=== PATIENT | male | born 1990 | race African-American/Black ===

== ENCOUNTER 2017-01-24 12:14 | Emergency (ER) | payer SELFPAY ==
[2017-01-24 12:28] VITALS: BP 120/72
[2017-01-24] MEDS ORDERED: IBUPROFEN 800 MG TABLET PO ONE (12:29)
--- NOTE | 2017-01-24 12:31 | ER Document Report ---
ED Medical Screen (RME) - General Stated Complaint: COUGH Mode of Arrival: Ambulatory Information source: Patient Notes: Patient presents to the emergency department with cough and fever for a week. Also reports body aches for a week. Reports diarrhea denies vomiting. Ports a scratchy throat denies sore throat. TRAVEL OUTSIDE OF THE [place] IN LAST 30 DAYS: No - Related Data Allergies/Adverse Reactions: No Known Allergies Allergy (Verified 01/24/17 12:26) Past Medical History Renal/ Medical History: Reports: Hx Epididymitis Musculoskeltal Medical History: Reports Hx Arthritis, Reports Hx Musculoskeletal Deformity - Immunizations Immunizations up to date: No Hx Diphtheria, Pertussis, Tetanus Vaccination: Yes - unknown last Physical Exam - Vital signs Vitals: Temp Pulse Resp BP Pulse Ox 102.6 F H 115 H 16 120/72 98 01/24/17 12:27 01/24/17 12:27 01/24/17 12:27 01/24/17 12:27 01/24/17 12:27 Course - Vital Signs Vital signs: Temp Pulse Resp BP Pulse Ox 102.6 F H 115 H 16 120/72 98 01/24/17 12:27 01/24/17 12:27 01/24/17 12:27 01/24/17 12:27 01/24/17 12:27
--- NOTE | 2017-01-24 15:45 | ER Document Report ---
HPI - HPI Pain Level: 3 Context: Patient is a 26-year-old male who presents to the emergency DEPARTMENT COMPLAINING OF ONE WEEK OF NASAL DRAINAGE, dry, nonproductive COUGH, BODY ACHES. PATIENT DID NOT RECEIVE A FLU VACCINE THIS YEAR. PATIENT STATES HE WORKS AT [employer] WHERE HE COULD POSSIBLY HAVE HAD A FLU EXPOSURE. Has been tolerating by mouth without any difficulty. Denies any nausea, vomiting, diarrhea constipation, , wheezing, shortness of breath, productive cough. Denies any abdominal pain. Has been taking Robitussin at home for the cough. Denies any past medical or past surgical history. Care physician - CARDIOVASCULAR Cardiovascular: DENIES: Chest pain - REPRODUCTIVE Reproductive: DENIES: : - DERM Skin Color: Normal Past Medical History - General Information source: Patient - Social History Smoking Status: Current Every Day Smoker Chew tobacco use (# tins/day): Yes Family History: Arthritis, DM, Hypertension Patient has suicidal ideation: No Patient has homicidal ideation: No Renal/ Medical History: Reports: Hx Epididymitis. Denies: Hx Peritoneal Dialysis Musculoskeltal Medical History: Reports Hx Arthritis, Reports Hx Musculoskeletal Deformity Surgical Hx: Negative - Immunizations Immunizations up to date: No Hx Diphtheria, Pertussis, Tetanus Vaccination: No - unknown last Vertical Provider Document - CONSTITUTIONAL Agree With Documented VS: No - rassesment of vitals david a temp of 98.7 and HR of 89 Exam Limitations: No Limitations General Appearance: WD/WN, No Apparent Distress - INFECTION CONTROL TRAVEL OUTSIDE OF THE [place] IN LAST 30 DAYS: No - HEENT HEENT: Atraumatic, Normal ENT Exam, Normocephalic, PERRLA - NECK Neck: Normal Inspection. negative: Lymphadenopathy-Left, Lymphadenopathy-Right - RESPIRATORY Respiratory: Breath Sounds Normal, No Respiratory Distress, Chest Non-Tender. negative: Rales, Rhonchi, Wheezing O2 Sat by Pulse Oximetry: 98 - CARDIOVASCULAR Cardiovascular: Regular Rate, Regular Rhythm, No Murmur Pulses: Normal: Radial - GI/ABDOMEN Gastrointestinal: Abdomen Soft, Abdomen Non-Tender, No Organomegaly, Normal Bowel Sounds - MUSCULOSKELETAL/EXTREMETIES Musculoskeletal/Extremeties: MAEW, FROM, Non-Tender, No Edema. negative: Eccymosis - NEURO Level of Consciousness: Awake, Alert, Appropriate Motor/Sensory: No Motor Deficit, No Sensory Deficit - DERM Integumentary: Warm, Dry, No Rash Course - Re-evaluation Re-evalutation: 01/24/17 15:44 Patient is a 26 old male who presents with flu symptoms for one week. Patient is hemodynamically stable, no acute distress and afebrile. His vital signs have returned to normal limits after Motrin was received in [facility]. At this time patient is outside of the window for Tamiflu. Patient has been educated on medications to take [id number] to treat symptomatically for influenza. Can follow-up with private PCP as needed. - Vital Signs Vital signs: Temp Pulse Resp BP Pulse Ox 102.6 F H 115 H 16 120/72 98 01/24/17 12:27 01/24/17 12:27 01/24/17 12:27 01/24/17 12:01/24/17 12:27 - Diagnostic Test Radiology reviewed: Image reviewed, Reports reviewed Discharge - Discharge Clinical Impression: Flu-like symptoms Condition: Good Disposition: HOME, SELF-CARE Additional Instructions: INFLUENZA: The physician feels that you have influenza -- the "flu". Influenza is an infection caused by a virus. Symptoms include generalized aching, fever, headache, dry cough, and fatigue. Some patients with the flu also have nausea, vomiting, and diarrhea. The fever and aches usually last two to four days, with the cough persisting another one to two weeks. Treatment of the flu, for the most part, is simply treatment of symptoms. Rest, drink plenty of fluids, and use acetaminophen for fever and aches. Do not take aspirin. There is an anti-viral medication, called Tamiflu, which may help in "type A" flu, but it's not helpful in every case of flu, and only works if started within the first 24 - 48 hours of the start of symptoms. The physician will determine whether this medication can help you. To prevent spread of the virus, use good handwashing. Shared toys should be cleaned with disinfectant. Clean the toilets, sinks, and counter surfaces in bathrooms. Launder clothing in hot water. What are conditions that should receive medical attention? The development of difficulty breathing. Lip color changes to blue or purple. Persistent vomiting and unable to keep liquids down with signs of dehydration such as: dizziness when standing, unable to urinate, or if child/ is crying no tears are noticed. Is less responsive than normal or becomes confused. How do I decrease the spread of flu in my home? Taking care of the sick patient at home: Keep the sick person in a room separate from the common areas of the house. Keep the "sickroom" door closed. If the person with the flu needs to leave the home, they should cover their nose/mouth when coughing or sneezing and wear a disposable (surgical) mask if available. These masks may be available at your local pharmacy, medical supply and hardware store. If the sick person is in common areas of the house, have them wear a surgical mask. If possible, have the sick person use a separate bathroom that should be cleaned daily with a household disinfectant. If you are the caregiver: Avoid being face to face with the sick adult person as much as possible. Try to stay at least 6 feet away and wear a disposable surgical mask when possible. When holding small children who are sick, place their chin on your shoulder so that they will not cough in your face. Wash your hands after you touch the sick person or handle their tissues and laundry. Wear a mask if you leave home, as you may be infected from taking care of someone and not know it yet. Watch yourself and others in the home for flu symptoms and contact your doctor if symptoms occur. NOTE: Antiviral medication used to reduce the symptoms of the flu works only if taken within 48 hours, and best within 24 hours of symptom onset. Household Cleaning, laundry and waste disposal: Tissues and other disposable items used by the sick person should be thrown away in the trash. Wash your hands after touching these used items. No special waste disposal is required. Keep surfaces (especially bedside tables, bathroom surfaces, and toys for children) clean by wiping them down with a safe household disinfectant according to the directions on the product label. Per Center for Disease Control advice, most people will not receive testing to confirm flu. Also based on the person's health history and onset of symptoms, not all patients will receive prescriptions for antiviral medications. If you have questions related to this, please ask your healthcare provider. For more information, you can call the Centers for Disease Control and Prevention (CDC) Hotline at 5-150-TCP-[employer] This line is available in [place] and [place], 24 hours a day, 7 days a week. Or wwwRelaborate or www.cdc.gov Flu-Like Illness Home Instructions: The influenza virus infection can cause a wide rage of symptoms, including: Fever, cough, sore throat, body aches, headaches, chills, fatigue, with some patients reporting diarrhea and vomiting Like seasonal influenza A, H1N1 ("swine flu")in humans can vary in severity from mild to severe Severe illness with pneumonia, respiratory failure and even is possible Certain groups might be more likely to develop a severe illness from H1N1 infection. Sometimes bacterial infections may occur at the same time as or after infection with influenza viruses and lead to pneumonias, ear infections, or sinus infections. How Flu Spreads The main way that influenza viruses spread is through respiratory droplets of coughs and sneezes. This can happen when someone with the infection coughs or sneezes and the particles fly through the air and land on other people and surfaces. If the person covers their mouth and nose with their hand but does not wash their hands immediately, then these germs are passed onto the next object that they touch. People with Influenza A or suspected H1N1 (swine flu) who are cared for at home should: Check with their doctor about any special care that they might need if they are or have a health condition such as diabetes, heart disease, asthma or emphysema. Also, limit caregiver to one (if possible). women or those with chronic health conditions should not take care of the flu patient unless necessary. Check with their doctor about whether or not medications are needed that may lessen the symptoms of the flu. Stay at home until 24 hours fever free without the use of fever reducing medication. Get plenty of rest and avoid other healthy people in your home. Drink plenty of clear liquids to keep from getting dehydrated. Take medications like Tylenol (Acetaminophen), Advil/Motrin/Nuprin ( Ibuprofen) or Aleve (Naproxen) for fevers and aches. All children under the age of 18 years of age should not take aspirin or products containing aspirin (e.g. Pepto Bismol), as this can cause a rare serious illness called Chris Syndrome. Over the counter medications for flu and colds may help, but it is very important to follow the package directions. Remember that the medicine may help the symptoms, but it will not help prevent others from getting sick if they are around you. Cover coughs and sneezes using your bent arm. Clean hands with soap and water or an alcohol-based hand rub often, especially after using tissues to cough or sneeze. Encourage hand washing frequently for all people living in the home! The sick person should not have visitors other than caregivers. Encourage concerned loved ones to call instead of visit. Avoid close contact with others-do not go to work or school while sick. USE OF ACETAMINOPHEN (Tylenol): Acetaminophen may be taken for pain relief or fever control. It's much safer than aspirin, offering a wider range of "safe" dosages. It is safe during . Some brand names are Tylenol, Panadol, Datril, Anacin 3, Tempra, and Liquiprin. Acetaminophen can be repeated every four hours. The following are maximum recommended dosages: WEIGHT Dose Drops Elixir Chewable( 80mg) (LBS.) drprs=droppers tsp=teaspoon 6 40 mg 0.4 ml (1/2) 6-11 80 mg 0.8 ml (full) tsp 1 tab 12-16 120 mg 1 1/2 drprs 3/4 tsp 1 1/2 tabs 17-23 160 mg 2 drprs 1 tsp 2 tabs 24-30 240 mg 3 drprs 1 1/2 tsp 3 tabs 30-35 320 mg 2 tsp 4 tabs 36-41 360 mg 2 1/4 tsp 4 1/2 tabs 42-47 400 mg 2 1/2 tsp 5 tabs 48-53 480 mg 3 tsp 6 tabs 54-59 520 mg 3 1/4 tsp 6 1/2 tabs 60-64 560 mg 3 1/2 tsp 7 tabs 65-70 600 mg 3 3/4 tsp 7 1/2 tabs 71-76 640 mg 4 tsp 8 tabs 77-82 720 mg 4 1/2 tsp 9 tabs 83-88 800 mg 5 tsp 10 tabs >89 pounds or adults 650 mg to 900 mg Acetaminophen can be repeated every four hours. Maximum dose not to exceed 4000 mg a day. These maximum recommended dosages are slightly higher than the dosages written on the product container, but these dosages are very safe and below the toxic dosage for acetaminophen. ORAL NARCOTIC MEDICATION: You have been given a prescription for pain control. This medication is a narcotic. It's best taken with food, as nausea can result if taken on an empty stomach. Don't operate machinery or drive within six hours of taking this medication. Do not combine this medicine with alcohol, or with any medication which can cause sedation (such as cold tablets or sleeping pills) unless you get permission from the physician. Narcotics tend to cause constipation. If possible, drink plenty of fluids and eat a diet high in fiber and fruits. Please be aware that prescription narcotics also have the potential for abuse. People become addicted to these medications because of the general sense of wellbeing that they induce. This feeling along with a significant reduction in tension, anxiety, and aggression provides a stimulating seductive quality to these drugs. Once your pain is under control, we encourage you to discard your unused narcotics. FOLLOW-UP CARE: If you have been referred to a physician for follow-up care, call the physician s office for an appointment as you were instructed or within the next two days. If you experience worsening or a significant change in your symptoms, notify the physician immediately or return to the Emergency Department at any time for re-evaluation. Forms: Return to Work Referrals: DAVID FISHER MD [ACTIVE STAFF] - Follow up as needed
== END 2017-01-24 15:49 | disposition home or self-care (01) ==
LOC: ER 12:14
DX: R05 Cough (principal); M79.1 Myalgia; J34.89 Other specified disorders of nose and nasal sinuses; F17.200 Nicotine dependence, unspecified, uncomplicated; F17.220 Nicotine dependence, chewing tobacco, uncomplicated
CPT/HCPCS: 71020; 99283

== ENCOUNTER 2017-10-07 11:36 | Emergency (ER) | payer SELFPAY ==
--- NOTE | 2017-10-07 12:25 | ER Document Report ---
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 No specific injury. No cervical spine pain or injury. Associated Symptoms: None Exacerbated by: Movement Relieved by: Denies Similar symptoms previously: Yes Recently seen / treated by doctor: No - ROS ROS below otherwise negative: Yes Systems Reviewed and Negative: Yes All other systems reviewed and negative - REPRODUCTIVE Reproductive: DENIES: : Past Medical History - General Information source: Patient - Social History Smoking Status: Current Every Day Smoker Frequency of alcohol use: None Drug Abuse: None Lives with: Family Family History: Arthritis, DM, Hypertension Renal/ Medical History: Reports: Hx Epididymitis. Denies: Hx Peritoneal Dialysis Musculoskeltal Medical History: Reports Hx Arthritis, Reports Hx Musculoskeletal Deformity Surgical Hx: Negative - Immunizations Immunizations up to date: No Hx Diphtheria, Pertussis, Tetanus Vaccination: Yes - unknown last Vertical Provider Document - CONSTITUTIONAL Agree With Documented VS: Yes Exam Limitations: No Limitations General Appearance: No Apparent Distress - INFECTION CONTROL TRAVEL OUTSIDE OF THE [place] IN LAST 30 DAYS: No - HEENT HEENT: Normocephalic - NECK Neck: Supple - non tender - RESPIRATORY Respiratory: Breath Sounds Normal, No Respiratory Distress O2 Sat by Pulse Oximetry: 97 - CARDIOVASCULAR Cardiovascular: Regular Rate, Regular Rhythm - BACK Back: Normal Inspection Notes: shoulderr rolled forward, internal rotation - MUSCULOSKELETAL/EXTREMETIES Musculoskeletal/Extremeties: MAEW, FROM, Tender - right trapezius muscle, periscapular muscles - NEURO Level of Consciousness: Awake, Alert Motor/Sensory: No Motor Deficit, No Sensory Deficit Notes: 5+ strength - DERM Integumentary: Warm, Dry Course - Vital Signs Vital signs: Temp Pulse Resp BP Pulse Ox 99.2 F 87 18 129/76 H 97 10/07/17 11:48 10/07/17 11:48 10/07/17 11:48 10/07/17 11:48 10/07/17 11:48 Discharge - Discharge Clinical Impression: Strain of right trapezius muscle Qualifiers: Encounter type: initial encounter Qualified Code(s): S46.811A - Strain of other muscles, fascia and tendons at shoulder and upper arm level, right arm, initial encounter Radiculopathy Qualifiers: Spinal region: cervical Qualified Code(s): M54.12 - Radiculopathy, cervical region Condition: Good Disposition: HOME, SELF-CARE Instructions: Acetaminophen, Chiropractor, Muscle Strain ([facility]), Numbness or Paresthesia ([facility]), Warm Packs ([facility]) Additional Instructions: warm compress stretches that we practiced tylenol and motrin for pain and inflammation see the chiropractor see family practice doctor, list given to you Please complete the patient satisfaction survey if you get one, and return it.. If you do not receive a survey, then you can go to the [facility] website, [email or web address] and place your comments about your very good care. Thank you very much. It was a pleasure being your medical provider today. Prescriptions: Ibuprofen [Motrin 800 mg Tablet] 800 mg PO Q8HP PRN #30 tablet PRN Reason: Referrals: JENNIFER GRIFFITH DC [CHIROPRACTOR] - Follow up as needed
[2017-10-07] MEDS ORDERED: ACETAMINOPHEN 325 MG TABLET PO ONE (12:48)
[2017-10-07] MEDS ORDERED: IBUPROFEN 800 MG TABLET PO ONE (12:48)
[2017-10-07 13:15] VITALS: BP 125/80
== END 2017-10-07 13:15 | disposition home or self-care (01) ==
LOC: ER 11:36
DX: S46.811A Strain of other muscles, fascia and tendons at shoulder and upper arm level, right arm, initial encounter (principal); X58.XXXA Exposure to other specified factors, initial encounter; G89.29 Other chronic pain; F17.200 Nicotine dependence, unspecified, uncomplicated
CPT/HCPCS: 99283

== ENCOUNTER 2018-02-07 16:28 | Emergency (ER) | payer SELFPAY ==
[2018-02-07 17:14] VITALS: BP 122/74
[2018-02-07] MEDS ORDERED: CEFTRIAXONE INJ 250 MG VIAL IM ONE (18:14)
[2018-02-07] MEDS ORDERED: LIDOCAINE 1% INJ-PF (10 MG/ML) 30 ML SDV INJ ONE (18:14)
[2018-02-07] MEDS ORDERED: AZITHROMYCIN 250 MG TABLET PO ONE (18:14)
--- NOTE | 2018-02-07 18:16 | ER Document Report ---
HPI - HPI Patient complains to provider of: Possible STD Onset/Duration: Persistent Quality of pain: Burning Pain Level: 2 Context: Patient presents complaining of dysuria and penile discharge for the past 3 days. Patient had recent unprotected intercourse and is concerned about an STD. Associated Symptoms: Other - Penile drainage. denies: Fever Exacerbated by: Denies Relieved by: Denies Similar symptoms previously: Yes Recently seen / treated by doctor: No - ROS ROS below otherwise negative: Yes Systems Reviewed and Negative: Yes All other systems reviewed and negative - CONSTITUTIONAL Constitutional: DENIES: Fever - GASTROINTESTINAL Gastrointestinal: DENIES: Abdominal Pain - URINARY Urinary: REPORTS: Dysuria - REPRODUCTIVE Reproductive: DENIES: : - DERM Skin Color: Normal Skin Problems: None Past Medical History - General Information source: Patient - Social History Smoking Status: Current Every Day Smoker Frequency of alcohol use: None Drug Abuse: Marijuana Occupation: Construction Family History: Arthritis, DM, Hypertension Renal/ Medical History: Reports: Hx Epididymitis. Denies: Hx Peritoneal Dialysis Musculoskeltal Medical History: Reports Hx Arthritis, Reports Hx Musculoskeletal Deformity Surgical Hx: Negative - Immunizations Immunizations up to date: No Hx Diphtheria, Pertussis, Tetanus Vaccination: Yes - unknown last Vertical Provider Document - CONSTITUTIONAL Agree With Documented VS: Yes Exam Limitations: No Limitations General Appearance: WD/WN, No Apparent Distress - INFECTION CONTROL TRAVEL OUTSIDE OF THE [place] IN LAST 30 DAYS: No - HEENT HEENT: Atraumatic, Normocephalic - NECK Neck: Normal Inspection, Supple - RESPIRATORY Respiratory: Breath Sounds Normal, No Respiratory Distress - CARDIOVASCULAR Cardiovascular: Regular Rate, Regular Rhythm - REPRODUCTIVE Male Genitalia: Abnormal Inspection - Right inguinal lymphadenopathy Notes: Normal cremasteric reflex, no drainage or discharge, no skin rash, no testicular tenderness - BACK Back: Normal Inspection. negative: CVA Tenderness-Right, CVA Tenderness-Left - MUSCULOSKELETAL/EXTREMETIES Musculoskeletal/Extremeties: MAEW - NEURO Level of Consciousness: Awake, Alert, Appropriate Motor/Sensory: No Motor Deficit - DERM Integumentary: Warm, Dry, No Rash Course - Re-evaluation Re-evalutation: 02/07/18 20:10 Patient was still waiting here in the emergency department for his partner. Partner did test positive for trichomonas, patient will be treated for Trichomonas as well even though his urinalysis did not test positive for this. Patient also advised of positive gonorrhea test results at this time. - Vital Signs Vital signs: Temp Pulse Resp BP Pulse Ox 98.0 F 64 20 122/74 99 02/07/18 17:13 02/07/18 17:13 02/07/18 17:13 02/07/18 17:13 02/07/18 17:13 - Laboratory Laboratory results interpreted by me: 02/07/18 18:37 Labs- Entire Visit 02/07/18 18:00 Urine Color YELLOW Urine Appearance SLIGHTLY-CLOUDY Urine pH 5.0 Ur Specific [place] 1.029 Urine Protein NEGATIVE Urine Glucose (UA) NEGATIVE Urine Ketones NEGATIVE Urine Blood NEGATIVE Urine Nitrite NEGATIVE Urine Bilirubin NEGATIVE Urine Urobilinogen 2.0 H Ur Leukocyte Esterase SMALL H Urine WBC (Auto) 12 Urine RBC (Auto) 4 Urine Bacteria (Auto) TRACE Squamous Epi Cells Auto <1 Calcium Oxalate Cr Auto RARE Urine Mucus (Auto) MOD Urine Ascorbic Acid NEGATIVE Discharge - Discharge Clinical Impression: Penile discharge, Trichomoniasis, Gonorrhea Condition: Stable Disposition: HOME, SELF-CARE Instructions: Azithromycin ([facility]), Gonorrhea ([facility]), Metronidazole ([facility]), Rocephin ([facility]) Additional Instructions: Return immediately for any new or worsening symptoms Followup with your primary care provider, call tomorrow to make a followup appointment Follow-up with health department for HIV testing Safe sex practices Forms: Smoking Cessation Education [facility]NO [facility]AL [facility] - Follow up tomorrow
[2018-02-07 18:32] LABS: APPEARANCE,URINE SLIGHTLY-CLOUDY; BILIRUBIN,URINE NEGATIVE (NEGATIVE); CALCIUM OXALATE CRYSTALS,URINE RARE /HPF; COLOR,URINE YELLOW; GLUCOSE, URINE NEGATIVE (NEGATIVE); KETONES,URINE NEGATIVE (NEGATIVE); LEUKOCYTE ESTERASE,URINE SMALL (NEGATIVE); NITRITE,URINE NEGATIVE (NEGATIVE); PROTEIN,URINE NEGATIVE (NEGATIVE); URINE SPECIFIC GRAVITY 1.029
[2018-02-07 19:47] LABS: CHLAM PCR NOT DETECTED (NOT DETECT); GON PCR DETECTED (NOT DETECT)
[2018-02-07] MEDS ORDERED: METRONIDAZOLE 500 MG TABLET PO ONE (20:09)
== END 2018-02-07 19:28 | disposition home or self-care (01) ==
LOC: ER 16:28
DX: A59.00 Urogenital trichomoniasis, unspecified (principal); A54.09 Other gonococcal infection of lower genitourinary tract; R36.9 Urethral discharge, unspecified; R30.0 Dysuria; F17.200 Nicotine dependence, unspecified, uncomplicated
CPT/HCPCS: 99283; 96372; 36415; 87086; 86592; 81001; 87491; 87591; J3490; J0696

== ENCOUNTER 2018-02-12 08:39 | Emergency (ER) | payer OTHER ==
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
[2018-02-12] MEDS ORDERED: KETOROLAC TROMETHAMINE INJ/PF 30 MG/1 ML SDV IM ONE (09:35)
[2018-02-12] MEDS ORDERED: DEXAMETHASONE SOD PHOS INJ 10 MG/1 ML VIAL IM ONE (09:35)
[2018-02-12 10:43] VITALS: BP 144/74
== END 2018-02-12 10:42 | disposition home or self-care (01) ==
LOC: ER 08:39
DX: S16.1XXA Strain of muscle, fascia and tendon at neck level, initial encounter (principal); S63.502A Unspecified sprain of left wrist, initial encounter; M54.5 Low back pain; M54.2 Cervicalgia; M25.531 Pain in right wrist; M25.532 Pain in left wrist; F17.200 Nicotine dependence, unspecified, uncomplicated; V87.7XXA Person injured in collision between other specified motor vehicles (traffic), initial encounter
CPT/HCPCS: 99283; 96372; J1885; J1100

== ENCOUNTER 2018-08-05 15:16 | Emergency (ER) | payer SELFPAY ==
[2018-08-05 15:22] VITALS: BP 131/72
[2018-08-05] MEDS ORDERED: CEFTRIAXONE INJ 250 MG VIAL IM ONE (15:54)
[2018-08-05] MEDS ORDERED: LIDOCAINE 1% INJ-PF (10 MG/ML) 30 ML SDV INJ ONE (15:54)
[2018-08-05] MEDS ORDERED: AZITHROMYCIN 250 MG TABLET PO ONE (15:54)
--- NOTE | 2018-08-05 16:06 | ER Document Report ---
HPI - HPI Pain Level: Denies Notes: Patient is a 28-year-old male who presents with chief complaint of request for STD check. Patient reports his girlfriend was recently treated for STDs, he is unsure of which ones. Patient is having dysuria and mild discomfort with urination. Denies any fevers. - REPRODUCTIVE Reproductive: DENIES: : Past Medical History - General Information source: Patient - Social History Smoking Status: Current Some Day Smoker Frequency of alcohol use: None Drug Abuse: None Family History: Arthritis, DM, Hypertension Renal/ Medical History: Reports: Hx Epididymitis. Denies: Hx Peritoneal Dialysis Musculoskeletal Medical History: Reports Hx Arthritis, Reports Hx Musculoskeletal Deformity Surgical Hx: Negative - Immunizations Immunizations up to date: No Hx Diphtheria, Pertussis, Tetanus Vaccination: Yes - unknown last Vertical Provider Document - CONSTITUTIONAL Notes: PHYSICAL EXAMINATION: GENERAL: Well-appearing, well-nourished and in no acute distress. HEAD: Atraumatic, normocephalic. EYES: Pupils equal round extraocular movements intact, conjunctiva are normal. ENT: Nares patent NECK: Normal range of motion LUNGS: No respiratory distress Musculoskeletal: Normal range of motion NEUROLOGICAL: Normal speech, normal gait. PSYCH: Normal mood, normal affect. SKIN: Warm, Dry, normal turgor, no rashes or lesions noted. - INFECTION CONTROL TRAVEL OUTSIDE OF THE [place] IN LAST 30 DAYS: No Course - Re-evaluation Re-evalutation: 08/05/18 16:15 Urinalysis is negative for any infection. Patient given IM Rocephin and p.o. azithromycin for possible exposure to chlamydia and gonorrhea. - Vital Signs Vital signs: Temp Pulse Resp BP Pulse Ox 99.2 F 83 16 131/72 H 99 08/05/18 15:21 08/05/18 15:21 08/05/18 15:21 08/05/18 15:21 08/05/18 15:21 Discharge - Discharge Clinical Impression: STD check, STD exposure, Penile discharge Condition: Stable Disposition: HOME, SELF-CARE Additional Instructions: Your urinalysis was negative for any signs of infection. The chlamydia and gonorrhea testing is still pending. I will call you if the results are positive. You have already been treated with both Rocephin and ceftriaxone which will treat both of the possible STDs that we are looking for. Please refrain from sexual activity for 7 days, make sure your partner also gets treatment. You may both follow-up with the health department for repeat STD testing to ensure that the testing is negative at that time.
[2018-08-05 16:09] LABS: APPEARANCE,URINE SLIGHTLY-CLOUDY; BILIRUBIN,URINE NEGATIVE (NEGATIVE); COLOR,URINE YELLOW; GLUCOSE, URINE NEGATIVE (NEGATIVE); KETONES,URINE NEGATIVE (NEGATIVE); LEUKOCYTE ESTERASE,URINE NEGATIVE (NEGATIVE); NITRITE,URINE NEGATIVE (NEGATIVE); PROTEIN,URINE NEGATIVE (NEGATIVE); URINE SPECIFIC GRAVITY 1.021
[2018-08-05 17:29] LABS: CHLAM PCR NOT DETECTED (NOT DETECT); GON PCR NOT DETECTED (NOT DETECT)
== END 2018-08-05 16:30 | disposition home or self-care (01) ==
LOC: ER 15:16
DX: Z20.2 Contact with and (suspected) exposure to infections with a predominantly sexual mode of transmission (principal); R36.9 Urethral discharge, unspecified; R30.0 Dysuria; F17.200 Nicotine dependence, unspecified, uncomplicated
CPT/HCPCS: 99283; 96372; 81001; 87491; 87591; J3490; J0696

== ENCOUNTER 2019-10-20 17:05 | Emergency (ER) | payer SELFPAY ==
[2019-10-20] MEDS ORDERED: IBUPROFEN 800 MG TABLET PO ONE (17:32)
--- NOTE | 2019-10-20 17:32 | ER Document Report ---
ED Hand/Wrist Injury - General Mode of Arrival: Ambulatory Information source: Patient TRAVEL OUTSIDE OF THE [place] IN LAST 30 DAYS: No - HPI Injury to: Hand - left Onset: Just prior to arrival Where: Home Timing: Still present Quality of pain: Achy, Throbbing Severity: Mild Pain Level: 1 Context: Blow, Laceration <DAVID WALTON - Last Filed: 10/20/19 20:23> <YUE MARMOLEJO - Last Filed: 10/20/19 22:36> - General Chief Complaint: Hand Injury Stated Complaint: HAND INJURY Time Seen by Provider: 10/20/19 17:27 Primary Care Provider: CAMILLE CARVAJAL MD [ACTIVE PROVISIONAL STAFF] - 10/22/19 Notes: 29-year-old male presented to ED for injuries to the left hand. He states he punched the studs in the wall one time with his hand and he punched a wall with the other hand but did not hit a stud but the other hand is not injured. He does have small lacerations to the hand also. (DAVID WALTON) - Related Data Allergies/Adverse Reactions: No Known Allergies Allergy (Verified 08/05/18 15:17) Past Medical History - General Information source: Patient - Social History Smoking Status: Current Every Day Smoker Cigarette use (# per day): Yes - 10 cigarettes a day Smoking Education Provided: Yes - Minutes Frequency of alcohol use: Social Drug Abuse: Marijuana Occupation: [employer] Lives with: Parents Family History: Arthritis, DM, Hypertension Patient has suicidal ideation: No Patient has homicidal ideation: No - Past Medical History Cardiac Medical History: Reports: None Pulmonary Medical History: Reports: None EENT Medical History: Reports: None Neurological Medical History: Reports: None Endocrine Medical History: Reports: None Renal/ Medical History: Reports: Hx Epididymitis Malignancy Medical History: Reports None GI Medical History: Reports: None Musculoskeletal Medical History: Reports Hx Arthritis, Reports Hx Musculoskeletal Deformity Skin Medical History: Reports None Psychiatric Medical History: Reports: None Traumatic Medical History: Reports: None Infectious Medical History: Reports: None Surgical Hx: Negative Past Surgical History: Reports: None - Immunizations Immunizations up to date: Yes Hx Diphtheria, Pertussis, Tetanus Vaccination: Yes - 10/20/2019 <DAVID WALTON - Last Filed: 10/20/19 20:23> Review of Systems - Review of Systems Constitutional: No symptoms reported EENT: No symptoms reported Cardiovascular: No symptoms reported Respiratory: No symptoms reported Gastrointestinal: No symptoms reported Genitourinary: No symptoms reported Male Genitourinary: No symptoms reported Musculoskeletal: Other - Pain injury left hand Skin: Other - Laceration flap between the fourth and fifth finger on the left hand Hematologic/Lymphatic: No symptoms reported Neurological/Psychological: No symptoms reported -: Yes All other systems reviewed and negative <DAVID WALTON - Last Filed: 10/20/19 20:23> Physical Exam - Vital signs Interpretation: Normal - General General appearance: Appears well, Alert - HEENT Head: Normocephalic, Atraumatic Eyes: Normal Pupils: PERRL - Respiratory Respiratory status: No respiratory distress Chest status: Nontender Breath sounds: Normal Chest palpation: Normal - Cardiovascular Rhythm: Regular Heart sounds: Normal auscultation Murmur: No - Abdominal Inspection: Normal Distension: No distension Bowel sounds: Normal Tenderness: Nontender Organomegaly: No organomegaly - Back Back: Normal, Nontender - Extremities General upper extremity: Normal temperature General lower extremity: Normal inspection, Nontender, Normal color, Normal ROM, Normal temperature, Normal weight bearing. No: Chris's sign Hand: Tender, Ecchymosis, Laceration, Nail injury, No evidence of human bite, No evidence of FB, Swelling. No: Abrasion, Deformity, Dislocation, Instability - Neurological Neuro grossly intact: Yes Cognition: Normal Orientation: AAOx4 [place] Coma Scale Eye Opening: Spontaneous Peter Coma Scale Verbal: Oriented Peter Coma Scale Motor: Obeys Commands Peter Coma Scale Total: 15 Speech: Normal Motor strength normal: LUE, RUE, LLE, RLE Sensory: Normal - Psychological Associated symptoms: Normal affect, Normal mood - Skin Skin Temperature: Warm Skin Moisture: Dry Skin Color: Normal Skin irregularity: Laceration Location of irregularity: Extremities - Left hand Irregularity with: Swelling, Tenderness <DAVID WALTON - Last Filed: 10/20/19 20:23> - Vital signs Vitals: Temp Pulse Resp BP Pulse Ox 97.9 F 74 16 137/86 H 99 10/20/19 17:09 10/20/19 17:09 10/20/19 17:09 10/20/19 17:09 10/20/19 17:09 Course - Diagnostic Test Radiology reviewed: Image reviewed, Reports reviewed <DAVID WALTON - Last Filed: 10/20/19 20:23> - Re-evaluation Re-evalutation: 10/20/19 19:46 Fracture to the fifth metacarpal dislocation to the fourth and fifth metacarpal from the hamate bone. I did consult Dr. Carvajal who stated that the dislocation needed to be reduced. I did consult Dr. Marmolejo who recommended Versed 4 mg fentanyl 50 mg IV. These were given and then Dr. Marmolejo reduced the dislocation to the fourth and fifth metacarpal. The splint was then applied. Dr. Mccormick will write the reduction note. Dr. Carvajal stated of the patient will call first thing Tuesday he would get him in before [place]. Patient will be just charged with a [employer] dispense pack instructions to call first thing Tuesday for the orthopedic follow-up. (DAVID WALTON) - Vital Signs Vital signs: Temp Pulse Resp BP Pulse Ox 97.9 F 74 18 133/93 H 100 10/20/19 17:29 10/20/19 17:09 10/20/19 20:21 10/20/19 20:21 10/20/19 20:21 Procedures - Immobilization Left Hand Time completed: 19:45 Pre-Proc Neuro Vasc Exam: Normal Immobilizer type: Ulnar Performed by: PCT Post-Proc Neuro Vasc Exam: Normal Alignment checked and good: Yes - Laceration/Wound Repair Left Hand between 4 a5th finger Time completed: 18:30 Wound length (cm): 2 Wound's Depth, Shape: Flap Laceration pre-procedure: Sterile PPE donned, Sterile drapes applied, Shur-Clens applied Anesthetic type: 1% Lidocaine Volume Anesthetic (mLs): 5 Wound explored: Contaminated Irrigated w/ Saline (mLs): 400 Wound Repaired With: Sutures Suture Size/Type: 4:0, 3:0 Number of Sutures: 4 Layer Closure?: No Post-procedure wound care: Splint applied <DAVID WALTON - Last Filed: 10/20/19 20:23> - Conscious Sedation Conscious sedation Time started: 19:19 Time completed: 19:48 Consent obtained: Yes Indication: Reduction of a left hand metacarpal dislocation Normal healthy pt.: P1. - ASA Classification Airway Evaluation: Normal anatomy Mallampati Classification: Class 1 Used during procedure: Suction available, IV access obtained, Pulse ox on pt., desk monitor on pt. Medications administered: Versed - 4 mg, Fentanyl Reversal agents: None Complications: No - Joint Reduction/Fracture Care Left Hand Consent obtained: Yes Conscious sedation: Yes Pre-procedure NV exam: Yes Fracture: Closed Manipulation comment: dislocated second metacarpal, fracture of the first metacarpal. Traction o Post-procedure NV exam: Yes Post-reduction x-ray: Joint reduced - The alignment has improved however, since posterior dislocation is not completely reduced. Patient was manipulated further with traction and pressure on the proximal metacarpal for further reduction. Neurovascularly intact and esthetically improved alignment. Reduction attempts: 2 Complications: No <YUE MARMOLEJO - Last Filed: 10/20/19 22:36> Discharge <DAVID WALTON - Last Filed: 10/20/19 20:23> <YUE MARMOLEJO - Last Filed: 10/20/19 22:36> - Discharge Clinical Impression: Closed dislocation of fourth metacarpal bone of left hand, Closed dislocation of fifth metacarpal bone of left hand Fracture of fourth metacarpal bone of left hand Qualifiers: Encounter type: initial encounter Fracture type: closed Metacarpal location: shaft Fracture alignment: displaced Qualified Code(s): S62.325A - Displaced fracture of shaft of fourth metacarpal bone, left hand, initial encounter for closed fracture Condition: Stable Disposition: HOME, SELF-CARE Additional Instructions: Fractured Metacarpal You have broken a metacarpal bone in the hand. The fracture is usually caused by hitting the hand against a hard surface, but can also be caused by jamming a finger. At first the injury should be rested, elevated, and ice packed. The usual treatment is splinting for four to six weeks. For some patients, a cast is preferable. The physician will advise you. It's important to avoid any twisting or jamming of the fingers while the fracture is healing. Force on the fingers can make the fracture move. Usually, one or two fingers are included in the splint or cast. Sometimes fingers are taped instead -- in this case, extra caution to prevent a twisting of the fingers is necessary. Call the doctor or come back if swelling or pain become severe, if numbness develops, or if you suspect you may have disturbed the fracture. Dislocation You have suffered a dislocation of your joint. It has been reduced (put back in place). It will take time for the tissues around the joint to heal. The joint will be immobilized at first. If possible, elevate the injured area and apply ice packs. After healing is underway, the joint will require [id number] and strengthening exercises. The follow-up care is important in avoiding residual problems following your dislocation. If you note any numbness, muscle weakness, or severe swelling in the affected area, call the doctor or return for re-evaluation at once. Your dislocation has been reduced to your fourth and fifth metacarpal. Your fracture will need to be treated by the residential treatment specialist as we have discussed. You do need to keep your splint on as we discussed until you follow- up with your residential treatment specialist. ICE & ELEVATION: Apply ice packs frequently against the painful area. Many different schedules are recommended, such as "20 minutes on, 20 minutes off" or "one hour ice, two hours rest." If you need to work, you may need to go longer between ice treatments. You should plan to have the area ice packed AT LEAST one-fourth of the time. The ice should be applied over the wrap, tape, or splint, or over a layer of cloth -- not directly against the skin. Some ice bags have a built-in cloth and can be put directly on the skin. Your injured part should be elevated as much as possible over the next 48 hours. Try to keep the injury above the level of the heart. Avoid use of the injured area. Elevation and rest will decrease the swelling. USE OF [id number] IBUPROFEN: Ibuprofen (Advil, Nuprin, Medipren, Motrin IB) is a medication for fever and pain control. In addition, it has anti- inflammatory effects which may be beneficial, especially in the treatment of injuries. It's best to take ibuprofen with food. Persons with ulcer disease or allergy to aspirin should notify their physician of this before taking ibuprofen. Ibuprofen can be given every four to six hours, for a total of four doses daily. Age Pain or fever dose Antiinflammatory dose 6-8 yr 200 mg (1 tab) 200 mg (1 tab) 9-11 yr 200 mg (1 tab) 200-400 mg (1-2 tab) 11-14 yr 200-400 mg (1-2 tab) 400 mg (2 tab) 15-adult 400 mg (2 tab) 600 mg (3 tab) ORAL NARCOTIC MEDICATION: You have been given a [place] dispense pack for pain control. This med ication is a narcotic. It's best taken with food, as nausea can result if taken on an empty stomach. Don't operate machinery or drive within six hours of taking this medication. Do not combine this medicine with alcohol, or with any medication which can cause sedation (such as cold tablets or sleeping pills) unless you get permission from the physician. Narcotics tend to cause constipation. If possible, drink plenty of fluids and eat a diet high in fiber and fruits. Please be aware that prescription narcotics also have the potential for abuse. People become addicted to these medications because of the general sense of wellbeing that they induce. This feeling along with a significant reduction in tension, anxiety, and aggression provides a stimulating seductive quality to these drugs. Once your pain is under control, we encourage you to discard your unused narcotics. FOLLOW-UP CARE: If you have been referred to a physician for follow-up care, call the physicians office for an appointment as you were instructed or within the next two days. If you experience worsening or a significant change in your symptoms, notify the physician immediately or return to the Emergency Department at any time for re-evaluation. As we have discussed please call the orthopedic between 830 and 9:00 on Tuesday he stated if you call him Tuesday you would be seen before [place]. Dr. Carvajal is the orthopedic that I spoke with and he stated he would see you before [place] Prescriptions: Cephalexin Monohydrate [Keflex 500 mg Capsule] 500 mg PO Q6H 5 Days capsule Forms: Elevated Blood Pressure, Special Work Note, Smoking Cessation Education, Return to Work Referrals: CAMILLE CARVAJAL MD [ACTIVE PROVISIONAL STAFF] - 10/22/19
[2019-10-20] MEDS ORDERED: LIDOCAINE 1% INJ-PF (10 MG/ML) 30 ML SDV INJ ONE (17:33)
--- NOTE | 2019-10-20 18:12 | RADIOLOGY REPORT (SQ) ---
EXAM DESCRIPTION: HAND LEFT 3 VIEWS COMPLETED DATE/TIME: 10/20/2019 6:01 pm REASON FOR STUDY: Pain injury punched a wall COMPARISON: None. EXAM PARAMETERS: NUMBER OF VIEWS: Three views. TECHNIQUE: AP, lateral and oblique radiographic images acquired of the left hand. LIMITATIONS: None. FINDINGS: MINERALIZATION: Normal. BONES: Dorsal 1.2 cm dislocation of the base of the 5th metacarpal from the hamate. Oblique intra-ar ticular fracture of the base of the 4th metacarpal with 7 mm lateral displacement mild impaction. JOINTS: No effusion. SOFT TISSUES: Moderate soft tissue swelling. No radiopaque foreign body. OTHER: No other significant finding. IMPRESSION: Dorsal 1.2 cm dislocation of the base of the 5th metacarpal from the hamate. Oblique in tra-articular fracture of the base of the 4th metacarpal with 7 mm lateral displacement mild impactio n. TECHNICAL DOCUMENTATION: JOB ID: [id number] 2010 [employer]- All Rights Reserved Reading location - IP/workstation name: [email or web address]
[2019-10-20] MEDS ORDERED: HYDROCODONE/ACETAMINOPHEN 5-325 MG (6 TAB/ER DISP) PO PRN (18:21)
[2019-10-20] MEDS ORDERED: MIDAZOLAM 2 MG/2 ML INJ IV ONE (19:02)
[2019-10-20] MEDS ORDERED: FENTANYL CITRATE INJ/PF 100 MCG/2 ML AMPUL IV ONE (19:02)
--- NOTE | 2019-10-20 20:03 | RADIOLOGY REPORT (SQ) ---
EXAM DESCRIPTION: HAND LEFT 3 VIEWS COMPLETED DATE/TIME: 10/20/2019 7:37 pm REASON FOR STUDY: post reduction COMPARISON: Earlier exam EXAM PARAMETERS: NUMBER OF VIEWS: Three views. TECHNIQUE: AP and lateral radiographic images acquired of the left hand. LIMITATIONS: None. FINDINGS: Similar appearance of fracture- dislocation of the 4th and 5th metacarpals. OTHER: No other significant finding. IMPRESSION: Similar appearance of fracture- dislocation of the 4th and 5th metacarpals. TECHNICAL DOCUMENTATION: JOB ID: [id number] [id number] 2010 [employer]- All Rights Reserved Reading location - IP/workstation name: [email or web address]
[2019-10-20 20:29] VITALS: BP 133/93
[2019-10-20] MEDS ORDERED: CEPHALEXIN 500 MG CAPSULE PO ONE (20:31)
== END 2019-10-20 20:44 | disposition home or self-care (01) ==
LOC: ER 17:05
DX: S62.325A Displaced fracture of shaft of fourth metacarpal bone, left hand, initial encounter for closed fracture (principal); S62.307A Unspecified fracture of fifth metacarpal bone, left hand, initial encounter for closed fracture; S61.412A Laceration without foreign body of left hand, initial encounter; F17.210 Nicotine dependence, cigarettes, uncomplicated; W22.09XA Striking against other stationary object, initial encounter; Y92.009 Unspecified place in unspecified non-institutional (private) residence as the place of occurrence of the external cause
CPT/HCPCS: 99283; 99152; 73130; 12001; 26605; J2250; J3010

== ENCOUNTER 2020-09-09 08:17 | Emergency (ER) | payer SELFPAY ==
--- NOTE | 2020-09-09 09:15 | RADIOLOGY REPORT (SQ) ---
EXAM DESCRIPTION: FINGER RIGHT IMAGES COMPLETED DATE/TIME: 09/09/2020 8:41 am REASON FOR STUDY: right thumb injury COMPARISON: None. NUMBER OF VIEWS: Three views. TECHNIQUE: AP, lateral, and oblique images acquired of the right thumb. LIMITATIONS: None. FINDINGS: MINERALIZATION: Normal. BONES: No acute fracture or dislocation. No worrisome bone lesions. SOFT TISSUES: No soft tissue swelling. No foreign body. OTHER: No other significant finding. IMPRESSION: NO RADIOGRAPHIC EVIDENCE OF ACUTE INJURY. COMMENT: SITE OF TRAUMA/COMPLAINT MARKED/STAMP COMPLETED: NO. TECHNICAL DOCUMENTATION: JOB ID: [id number] 2010 [employer]- All Rights Reserved Reading location - IP/workstation name: [email or web address]
--- NOTE | 2020-09-09 11:14 | ER Document Report ---
HPI - HPI Pain Level: 3 Notes: 30-year-old male presents to the emergency room today for complaints of left thumb pain after he accidentally slammed his thumb into a car door 4 days ago. Reports he does have some swelling and bruising of his left cuticle. Denies any other area of injury. Reports pain is 4 out of 5, throbbing achy. Has not tried any iygd-jza-zvgahjd medications. Worse with time, nothing makes better. Denies fevers, chills, chest pain,palpitations, shortness of breath, dyspnea, neck pain, weakness, bowel or bladder dysfunction, saddle anesthesia, numbness or tingling in bilateral upper or lower extremities equally, muscle paralysis, weakness in bilateral upper or lower extremities equally or rash. Denies IV drug use. - REPRODUCTIVE Reproductive: DENIES: : Past Medical History - General Information source: Patient - Social History Smoking Status: Unknown if Ever Smoked Frequency of alcohol use: None Drug Abuse: None Family History: Arthritis, DM, Hypertension Renal/ Medical History: Reports: Hx Epididymitis Musculoskeletal Medical History: Reports Hx Arthritis, Reports Hx Musculoskeletal Deformity - Immunizations Immunizations up to date: Yes Hx Diphtheria, Pertussis, Tetanus Vaccination: Yes - 10/20/2019 Vertical Provider Document - CONSTITUTIONAL Agree With Documented VS: Yes Exam Limitations: No Limitations General Appearance: WD/WN Notes: MEDICATIONS: I agree with the patient medications as charted by the RN. ALLERGIES: I agree with the allergies as charted by the RN. PAST MEDICAL HISTORY/PAST SURGICAL HISTORY: Reviewed and agree as charted by RN. SOCIAL HISTORY: Reviewed and agree as charted by RN. FAMILY HISTORY: No significant familial comorbid conditions directly related to patient complaint EXAM: Reviewed vital signs as charted by RN. PHYSICAL EXAMINATION:reviewed vital signs by RN GENERAL: Well-appearing, well-nourished and in no acute distress. HEAD: Atraumatic, normocephalic. EYES: Pupils equal round and reactive to light, extraocular movements intact, sclera anicteric, conjunctiva are normal. ENT: Nares patent, oropharynx clear without exudates. Moist mucous membranes. NECK: Normal range of motion, supple without lymphadenopathy LUNGS: Breath sounds clear to auscultation bilaterally and equal. No wheezes rales or rhonchi. HEART: Regular rate and rhythm without murmurs ABDOMEN: Soft, nontender, nondistended abdomen. No guarding, no rebound. No masses appreciated. Musculoskeletal: Normal range of motion, no pitting or edema. No cyanosis. Pain to left 1st phalange at cuticle. no pain to wrist with flexion, extension, inversion, eversion of wrist. digits in right and left with full aprom.. Sports Instructor + 2 BUE equally. Snuffbox tenderness negative bilaterally. radial pulses + 2 BUE equally. Negative kanavels sign. No open wounds or drainage from wrist. No vascular compromise.No body crepitus or focal area of TTP. no pain with opposition, flexion, extension, abduction and adduction on left . Motor and sens ory function of ulnar, radial, medial nerves intact bilaterally and equally. strength 5/5 in BUE equally. NEUROLOGICAL: Cranial nerves grossly intact. Normal speech, normal gait. Normal sensory, motor exams PSYCH: Normal mood, normal affect. SKIN: Warm, Dry, normal turgor, no rashes or lesions noted. - INFECTION CONTROL TRAVEL OUTSIDE OF THE [place] IN LAST 30 DAYS: No Course - Re-evaluation Re-evalutation: 09/09/20 11:23 Febrile vital stable no distress. Nurses notes reviewed. X-ray of left thumb negative for any acute fracture dislocation or foreign body. Noted subungual hematoma to left cuticle thumbnail. - Vital Signs Vital signs: Temp Pulse Resp BP Pulse Ox 98.4 F 89 16 146/91 H 100 09/09/20 08:20 09/09/20 08:20 09/09/20 08:20 09/09/20 08:20 09/09/20 08:20 Procedures - Nail Trephanation/Removal Left Thumb Time completed: 11:24 Betadine prep applied: Yes Method of Drainage: Nail cauterized Notes: 09/09/20 11:24 Verbal consent given by patient for now cautery to create a Burow for the blood to escape. Site cleaned with Betadine. expressed approximately 3 mL of blood from left thumb nail. patient tolerated procedure without incident. 09/09/20 11:25 Discharge - Discharge Clinical Impression: Subungual hematoma of left thumb Condition: Stable Disposition: HOME, SELF-CARE Instructions: Sprained Thumb ([facility]), Subungual Hematoma ([facility]) Additional Instructions: Subungual Hematoma You have a collection of blood between the nail bed and nail, called a subungual hematoma. This injury is often very painful due to the pressure that builds up under the nail. The pressure is relieved by draining blood from beneath the nail, either by creating some small holes in it, or by the nail from the skin. This will usually stop the pain. Sometimes the nail must be removed completely to examine the nail bed for injury. You should elevate the injured digit as much as possible for the next two days. Usually the injured nail will separate from its bed over the next few weeks. A new nail will grow over the exposed nail bed. This may take two or three months. If swelling around the cuticle, redness, fever, or increasing pain occur, you should call the doctor immediately. Return immediately for any new or worsening symptoms. Follow up with primary care provider, call tomorrow to make followup appointment. Prescriptions: Naproxen 500 mg PO BID #10 tablet Forms: Return to Work Referrals: CAMILLE MULLER MD [ACTIVE STAFF] - Follow up as needed DAVID STEVENS MD [COMMUNITY BASED STAFF] - Follow up as needed
[2020-09-09 11:33] VITALS: BP 118/70
== END 2020-09-09 11:33 | disposition home or self-care (01) ==
LOC: ER 08:17
DX: S60.112A Contusion of left thumb with damage to nail, initial encounter (principal); M79.645 Pain in left finger(s); W23.0XXA Caught, crushed, jammed, or pinched between moving objects, initial encounter
CPT/HCPCS: 99283